=== PATIENT | female | born 1955 | race Caucasian/White ===

== ENCOUNTER 2017-09-23 17:41 | Observation (INO) | payer MEDICARE ==
[2017-09-23] MEDS ORDERED: 0.9 % SODIUM CHLORIDE 1,000 ML BAG IV ONE ×2 (18:00→18:36)
[2017-09-23] MEDS ORDERED: MORPHINE SULFATE 4MG/ML PREFILLED SYRINGE IVP ONE (18:00)
[2017-09-23] MEDS ORDERED: ONDANSETRON HCL IV 4 MG/2 ML VIAL IVP ONE (18:00)
--- NOTE | 2017-09-23 18:10 | Emergency Department Record ---
History of Present Illness <Huy Farmer - Last Filed: 09/23/17 20:29> - General Source: Patient, Family Mode of Arrival: Ambulatory Limitations: No limitations - History of Present Illness Initial Comments: 62 yo female presents after a fall at home in her kitchen. She states she has not felt well the last few days. She has had poor appetite, nausea, diarrhea. The diarrhea is improved today. She has felt weak and tired with decreased appetite. Today she was walking in the kitchen hitting her face, knees, left hand and left elbow. There was questionable very brief LOC. No neck pain, chest pain, abdominal pain, new back pain. She has MEN type IIA syndrome with cancer, adrenal absence,HTN, Medullary carcinoma of the thyroid. PCP Dr Rodger Rodriguez in [place] Complaint: Fall Onset/Timin -: Minutes(s) Fall From: Standing When Fall Occurred: 1 hour [employer] Fall Witnessed: No Place Fall Occurred: Home Symptoms Prior to Fall: None Location: Head, Face Location - Extremities: Left: Elbow, Hand Severity: Moderate Severity scale (1-10): 6 Quality: Aching Associated Symptoms: Denies - [place] Coma Scale Eye Response: (4) Open spontaneously Motor Response: (6) Obeys commands Verbal Response: (5) Oriented Vandana Total: 15 <SASHA LIVINGSTON - Last Filed: 09/24/17 08:19> - General Chief Complaint: Fall Injury Stated Complaint: FELL Time Seen by Provider: 09/23/17 17:59 - Related Data Home Medications Medication Instructions Recorded Confirmed Last Taken Acetaminophen 1,000 mg PO Q6H PRN 09/23/17 09/23/17 Unknown Acyclovir 1 apply TP ASDIR PRN 09/23/17 09/23/17 Unknown Beclomethasone Dipropionate [Qvar 2 inh INH BID 09/23/17 09/23/17 Unknown 80Mcg/100 Actuat Inhaler] Denosumab [Prolia] 60 mg SQ ASDIR 09/23/17 09/23/17 Unknown Dexamethasone [Decadron] 0.5 mg PO ASDIR 09/23/17 09/23/17 Unknown Diphenhydramine HCl [Benadryl] 25 mg PO WEEKLY 09/23/17 09/23/17 Unknown Fluticasone Propionate [Flonase] 1 spray EACH NARES BID 09/23/17 09/23/17 Unknown Hydrochlorothiazide [Hctz] 25 mg PO QHS 09/23/17 09/23/17 Unknown Lidocaine Patch [Lidoderm] 1 each TOP DAILY PRN 09/23/17 09/23/17 Unknown Losartan Potassium [Cozaar] 100 mg PO QHS 09/23/17 09/23/17 Unknown Metoprolol Succinate [Toprol Xl] 50 mg PO DAILY 09/23/17 09/23/17 Unknown Ondansetron [Zofran Odt] 4 mg PO Q8H PRN 09/23/17 09/23/17 Unknown Oxycodone HCl 5 mg PO Q4H PRN 09/23/17 09/23/17 Unknown Promethazine HCl/Codeine 5 - 10 ml PO Q4H PRN 09/23/17 09/23/17 Unknown [Prometh-Codein 6.25-10 mg/5 ml] Vortioxetine Hydrobromide 10 mg PO QAM 09/23/17 09/23/17 Unknown [Brintellix] Allergies Allergy/AdvReac Type Severity Reaction Status Date / Time Cephalosporins Allergy Unknown SWELLING Verified 09/23/17 17:58 (GENERAL) Penicillins Allergy Unknown HIVES Verified 09/23/17 17:58 Sulfa (Sulfonamide Allergy Unknown SWELLING Verified 09/23/17 17:58 Antibiotics) (GENERAL) sulfamethoxazole Allergy Unknown SWELLING Verified 09/23/17 17:58 (GENERAL) adhesive Allergy RASH Verified 09/23/17 17:58 Latex Allergy: Allergy Unknown RASH Uncoded 08/16/14 21:48 Travel Screening - Travel/Exposure Within Last 30 Days Have you traveled within the last 30 days?: No <SASHA LIVINGSTON - Last Filed: 09/24/17 08:19> Review of Systems Constitutional: Reports: Malaise, Weakness. Denies: Chills, Fever Eyes: Denies: Eye discharge, Eye pain, Photophobia, Vision change ENT: Denies: Congestion, Throat pain Respiratory: Denies: Cough, Dyspnea, Hemoptysis, Stridor, Wheezes Cardiovascular: Reports: Syncope. Denies: Chest pain, Edema, Palpitations Endocrine: Reports: Fatigue. Denies: Polydipsia, Polyuria Gastrointestinal: Reports: Diarrhea, Nausea, Vomiting. Denies: Abdominal pain, Constipation, Hematemesis, Hematochezia, Melena Genitourinary: Denies: Dysuria, Urgency Musculoskeletal: Reports: Arthralgia, Back pain (chronic and unchanged). Denies : Myalgia, Neck pain Skin: Reports: Bruising. Denies: Change in color Neurological: Reports: Headache. Denies: Abnormal gait, Confusion, Numbness, Tingling, Tremors, Vertigo, Weakness Psychiatric: Denies: Anxiety Hematological/Lymphatic: Denies: Easy bleeding, Easy bruising, Swollen glands <SASHA LIVINGSTON - Last Filed: 09/24/17 08:19> Past Medical History - SOCIAL HISTORY Smoking Status: Never smoker Alcohol Use: None Drug Use: None - RESPIRATORY Hx Respiratory Disorders: Yes Hx Asthma: Yes - CARDIOVASCULAR Hx Cardio Disorders: Yes Hx Abnormal EKG: Yes Hx Cardiac Cath: Yes Hx Deep Vein Thrombosis: Yes Hx Edema: Yes Hx Heart Attack: Yes Hx Hypertension: Yes Hx Hypotension: Yes Comment:: weak heart/ hole in heart between chambers/mitral valve prolapse - NEURO Hx Neuro Disorders: No - GI Hx GI Disorders: Yes Hx Reflux: Yes Hx Irritable Bowel: Yes - Hx Genitourinary Disorders: Yes Hx UTI: Yes - ENDOCRINE Hx Endocrine Disorders: No - MUSCULOSKELETAL Hx Musculoskeletal Disorders: Yes Hx Arthritis: Yes Hx Back Injury: Yes - PSYCH Hx Psych Problems: Yes Hx Depression: Yes - HEMATOLOGY/ONCOLOGY Hx Hematology/Oncology Disorders: Yes Hx Anemia: Yes (hypogamma globulin anemia) Hx Blood Disorders: Yes 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 negative: Atraumatic, Normal inspection Head exam detail: Abrasion, Contusion Image of Face/Head: 1 - contusion 2 - contusion - Eye Eye exam: Normal appearance, PERRL, EOMI, Periorbital swelling, Periorbital tenderness. negative: Conjunctival injection, Scleral icterus - ENT ENT exam: Normal exam, Mucous membranes moist, Normal orophraynx Ear exam: Normal external inspection Nasal Exam: Normal inspection Mouth exam: Normal external inspection Teeth exam: Normal inspection Throat exam: Normal inspection. negative: Tonsillar erythema, Tonsillar exudate - Neck Neck exam: Normal inspection, Full ROM. negative: Meningismus, Tenderness - Respiratory Respiratory exam: Normal lung sounds bilaterally. negative: Accessory muscle use, Chest wall tenderness, Decreased breath sounds, Prolonged expiratory, Respiratory distress, Stridor, Wheezes - Cardiovascular Cardiovascular Exam: Regular rate, Normal rhythm, Normal heart sounds - GI/Abdominal GI/Abdominal exam: Soft. negative: Distended, Guarding, Rebound, Rigid, Tenderness - Rectal Rectal exam: Deferred - exam: Deferred - Extremities Extremities exam: Full ROM, Joint swelling, Normal capillary refill. negative: Normal inspection, Pedal edema Image of Full Body: 1 - bilateral anterior knee tenderness, Slight abrasion on the left 2 - tenderness to palpation lateral elbow, full ROM 3 - lateral hand abrasion, tenderness, mild swelling 4 - tender, swelling, slight abrasion - Back Back exam: Reports: Normal inspection, Full ROM. Denies: CVA tenderness (R), CVA tenderness (L), Muscle spasm, Paraspinal tenderness, Vertebral tenderness - Neurological Neurological exam: Alert, Normal gait, Oriented X3. negative: Altered - Psychiatric Psychiatric exam: Normal affect, Normal mood - Skin Skin exam: Abrasion <SASHA LIVINGSTON - Last Filed: 09/24/17 08:19> Course Vital Signs 09/23/17 09/23/17 17:47 19:25 Temperature 98.8 F Pulse Rate 61 Pulse Rate [ 52 L Pulse Ox Probe] Respiratory 20 18 Rate Blood Pressure 124/74 Blood Pressure 117/78 [Left Arm] Pulse Ox 93 L 99 - Reevaluation(s) Reevaluation #2: The patient is doing well at this time. She is resting comfortably in no distress. I did discuss the neg xrays with the patient and need for a short stay admission and the patient agreed. I then did discuss the case with Dr. Gonsalves and he does accept the admission. 09/23/17 20:30 <Huy Farmer - Last Filed: 09/23/17 20:29> Vital Signs 09/23/17 17:47 Temperature 98.8 F Pulse Rate 61 Respiratory 20 Rate Blood Pressure 124/74 Pulse Ox 93 L - Reevaluation(s) Reevaluation #1: EKG NSR rate is 60, intervals normal, axis normal, ST NS lateral T wave changes that are old and present on 04/18/15 without new changes. 09/23/17 18:18 09/23/17 18:36 The CMP was reviewed The BUN and CR were 29 and 1.4 up from her baseline. 09/23/17 18:50 The case was signed out to Dr Farmer for further review of the results and disposition <SASHA LIVINGSTON - Last Filed: 09/24/17 08:19> Medical Decision Making - Data Complexity MDM Data: Labs Ordered and/or Reviewed, X-Ray Ordered and/or Reviewed, EKG Ordered and/or Reviewed - Lab Data Result diagrams: 09/23/17 18:00 09/23/17 18:00 Lab Results 09/23/17 09/23/17 09/23/17 Range/Units 18:00 18:00 18:00 WBC 7.6 (4.2-12.2) K/uL RBC 4.47 (3.80-5.40) M/uL Hgb 13.1 (11.6-16.0) gm/dl Hct 38.6 (35.0-47.0) % MCV 86.4 (81-97) fl MCH 29.3 (27-33) pg MCHC 33.9 (32-36) g/dl RDW 13.4 (11.5-14.5) % Plt Count 283 (130-400) K/uL MPV 10.0 (7.4-10.4) fl Gran % 56.0 (47-80) % Lymphocytes % 31.3 (16-45) % Monocytes % 10.0 H (0-9) % Eosinophils % 2.2 (0-6) % Basophils % 0.5 (0-6) % Sodium 139 (136-145) mmol/L Potassium 3.7 (3.4-4.5) mmol/L Chloride 99 (98-107) mmol/L Carbon Dioxide 25.0 (22-29) mmol/L Anion Gap 15.0 (7-16) BUN 29 H (8-23) mg/dL Creatinine 1.4 H (0.5-0.9) mg/dL Estimated GFR 41 mL/min Random Glucose 122 H (74-109) mg/dL Calcium 10.8 H (8.8-10.2) mg/dL Magnesium 1.7 (1.6-2.4) mg/dL Total Bilirubin 0.80 (0.2-1.0) mg/dL AST 14 (10.0-35.0) U/L ALT 12 (<33) U/L Alkaline Phosphatase 58 (35-104) U/L Troponin T (0-0.010) ng/mL Total Protein 7.1 (6.6-8.7) g/dL Albumin 4.4 (4.0-5.0) g/dL Globulin 2.7 (1.4-4.8) gm/dL Albumin/Globulin Ratio 1.6 (1.1-1.8) Urine Color Urine Appearance Urine pH Ur Specific [place] Urine Protein Urine Glucose (UA) Urine Clinitest Urine Ketones Urine Blood Urine Nitrite Urine Bilirubin Urine Ictotest Prot Sulfosalicylic Acd Urine Urobilinogen Ur Leukocyte Esterase 09/23/17 09/23/17 Range/Units 18:02 18:24 WBC (4.2-12.2) K/uL RBC (3.80-5.40) M/uL Hgb (11.6-16.0) gm/dl Hct (35.0-47.0) % MCV (81-97) fl MCH (27-33) pg MCHC (32-36) g/dl RDW (11.5-14.5) % Plt Count (130-400) K/uL MPV (7.4-10.4) fl Gran % (47-80) % Lymphocytes % (16-45) % Monocytes % (0-9) % Eosinophils % (0-6) % Basophils % (0-6) % Sodium (136-145) mmol/L Potassium (3.4-4.5) mmol/L Chloride (98-107) mmol/L Carbon Dioxide (22-29) mmol/L Anion Gap (7-16) BUN (8-23) mg/dL Creatinine (0.5-0.9) mg/dL Estimated GFR mL/min Random Glucose (74-109) mg/dL Calcium (8.8-10.2) mg/dL Magnesium (1.6-2.4) mg/dL Total Bilirubin (0.2-1.0) mg/dL AST (10.0-35.0) U/L ALT (<33) U/L Alkaline Phosphatase (35-104) U/L Troponin T < 0.010 (0-0.010) ng/mL Total Protein (6.6-8.7) g/dL Albumin (4.0-5.0) g/dL Globulin (1.4-4.8) gm/dL Albumin/Globulin Ratio (1.1-1.8) Urine Color Cancelled Urine Appearance Cancelled Urine pH Cancelled Ur Specific [place] Cancelled Urine Protein Cancelled Urine Glucose (UA) Cancelled Urine Clinitest Cancelled Urine Ketones Cancelled Urine Blood Cancelled Urine Nitrite Cancelled Urine Bilirubin Cancelled Urine Ictotest Cancelled Prot Sulfosalicylic Acd Cancelled Urine Urobilinogen Cancelled Ur Leukocyte Esterase Cancelled - EKG Data -: EKG Interpreted by Ar EKG: No Acute Changes - Radiology Data Radiology results: Report reviewed (All xrays with no acute bony fractures or dislocations.) <Huy Farmer - Last Filed: 09/23/17 20:29> - Lab Data Result diagrams: 09/23/17 18:00 09/23/17 18:00 <SASHA LIVINGSTON - Last Filed: 09/24/17 08:19> Disposition Disposition: Admit Decision to Admit: Admit from ER Decision to Admit Date: 09/23/17 Decision to Admit Time: 20:31 Accepting Physician: Brina Time Discussed w/Accepting Physician: 20:31 Time of Disposition: 20:31 <Huy Farmer - Last Filed: 09/23/17 20:29> <SASHA LIVINGSTON - Last Filed: 09/24/17 08:19> Clinical Impression: Syncope Qualifiers: Encounter type: initial encounter Disposition: Still a Patient at [facility] Condition: (2) Stable Quality - Blood Pressure Screening Does Patient Have Any of the Following: No Blood Pressure Classification: Pre-Hypertensive BP Reading Systolic Measurement: 124 Diastolic Measurement: 74 Screening for High Blood Pressure: < Pre-Hypertensive BP, F/U Documented > [ G8950] <Huy Farmer - Last Filed: 09/23/17 20:29> - Quality Measures Quality Measures: N/A - Blood Pressure Screening Blood Pressure Classification: Pre-Hypertensive BP Reading Systolic Measurement: 124 Diastolic Measurement: 74 Screening for High Blood Pressure: < Pre-Hypertensive BP, F/U Documented > [ G8950] Pre-Hypertensive Follow-up Interventions: Referral to alternative/primary care provider. <SASHA LIVINGSTON - Last Filed: 09/24/17 08:19>
[2017-09-23 18:14] LABS: BASO % 0.5 % (0-6); EOS % 2.2 % (0-6); HEMATOCRIT 38.6 % (35.0-47.0); HEMOGLOBIN 13.1 gm/dl (11.6-16.0); LYMPH % 31.3 % (16-45); MEAN CELL VOLUME 86.4 fl (81-97); MEAN CORPUSCULAR HEMOGLOBIN 29.3 pg (27-33); MEAN CORPUSCULAR HGB CONC 33.9 g/dl (32-36); PLATELET COUNT 283 K/uL (130-400); RED BLOOD COUNT 4.47 M/uL (3.80-5.40); RED CELL DISTRIBUTION WIDTH 13.4 % (11.5-14.5); WHITE BLOOD COUNT W/O DIFF 7.6 K/uL (4.2-12.2)
[2017-09-23 18:26] LABS: BILIRUBIN,TOTAL 0.8 mg/dL (0.2-1.0); CREATININE 1.4 mg/dL (0.5-0.9)
[2017-09-23 18:27] LABS: TOTAL PROTEIN 7.1 g/dL (6.6-8.7)
[2017-09-23 18:31] LABS: ALB/GLOB RATIO 1.6 (1.1-1.8); ALBUMIN 4.4 g/dL (4.0-5.0)
[2017-09-23] MEDS ORDERED: LIDOCAINE 5% PATCH TOP SCH (20:53)
[2017-09-23] MEDS ORDERED: DIPHENHYDRAMINE HCL 25 MG CAPSULE PO SCH (20:53)
[2017-09-23] MEDS ORDERED: DEXAMETHASONE 0.5 MG PO SCH (20:53)
[2017-09-23] MEDS ORDERED: ONDANSETRON 4 MG ODT TABLET PO SCH (20:53)
[2017-09-23] MEDS ORDERED: 0.9 % SODIUM CHLORIDE 1000ML 1,000 ML IV PRN (20:53)
[2017-09-23] MEDS ORDERED: ACYCLOVIR TP SCH (20:53)
[2017-09-23] MEDS ORDERED: LEVALBUTEROL TARTRATE INH PRN (20:53)
[2017-09-23] MEDS ORDERED: CODEINE PO SCH (20:53)
[2017-09-23] MEDS ORDERED: PROMETHAZINE HCL PO SCH (20:53)
[2017-09-23] MEDS ORDERED: DENOSUMAB 60 MG/ML SQ SCH (20:53)
[2017-09-23] MEDS ORDERED: OXYCODONE HCL 5 MG TABLET PO PRN (21:41)
[2017-09-23] MEDS ORDERED: ONDANSETRON 4 MG ODT TABLET SL PRN (21:49)
[2017-09-23] MEDS ORDERED: REMOVE PATCH 1 EACH MISC TD SCH (22:00)
[2017-09-23] MEDS ORDERED: ZOLPIDEM TARTRATE 5 MG TABLET PO SCH (22:00)
[2017-09-23] MEDS ORDERED: HYDROCORTISONE 25 MG PO SCH (22:00)
[2017-09-23] MEDS ORDERED: LIDOCAINE 5% TD PRN (22:00)
[2017-09-23] MEDS ORDERED: LOSARTAN PO SCH (22:00)
[2017-09-23] MEDS ORDERED: HYDROCHLOROTHIAZIDE PO SCH (22:00)
[2017-09-23] MEDS ORDERED: LOSARTAN POTASSIUM 100 MG TABLET PO SCH (22:00)
[2017-09-23] MEDS ORDERED: REMOVE PATCH 1 EACH MISC TD PRN (22:00)
[2017-09-23] MEDS ORDERED: HYDROCHLOROTHIAZIDE 25 MG TABLET PO SCH (22:00)
[2017-09-23] MEDS ORDERED: BREO (FLUTICASONE/VILANTEROL) 200MCG/25MCG INHALER INH SCH (22:00)
[2017-09-23] MEDS ORDERED: MONTELUKAST SODIUM 10MG TABLET PO SCH (22:00)
[2017-09-23] MEDS: ACETAMINOPHEN 500 MG TABLET PO PRN (22:30)
[2017-09-23] MEDS: PANTOPRAZOLE SODIUM 40 MG TABLET PO SCH (22:30)
[2017-09-23] MEDS: FLUTICASONE PROPIONATE 50MCG NASAL 16 GM BTL SCH (22:31)
[2017-09-23] MEDS: LEVALBUTEROL HCL 1.25 MG/3 ML INH PRN (22:32)
[2017-09-24 02:04] LABS: CKMB 1.2 ng/mL (<3.77)
[2017-09-24] MEDS: ACETAMINOPHEN 500 MG TABLET PO PRN (04:43)
[2017-09-24] MEDS: PANTOPRAZOLE SODIUM 40 MG TABLET PO SCH (06:04)
[2017-09-24] MEDS: FLUDROCORTISONE ACETATE 0.1 MG PO SCH ×2 (06:06→14:35)
[2017-09-24] MEDS: HYDROCORTISONE 10 MG PO SCH ×2 (06:09→14:35)
[2017-09-24] MEDS ORDERED: HYDROCORTISONE 5 MG PO SCH (07:00)
[2017-09-24] MEDS ORDERED: LEVOTHYROXINE SODIUM 175 MCG TABLET PO SCH (07:00)
[2017-09-24] MEDS: FLUTICASONE PROPIONATE 50MCG NASAL 16 GM BTL SCH (09:13)
[2017-09-24] MEDS ORDERED: (Vortioxetine Hydrobromide [Trintellix] 10 MG) PO SCH (10:00)
[2017-09-24] MEDS ORDERED: METOPROLOL TART 50 MG TABLET PO SCH (10:00)
[2017-09-24] MEDS ORDERED: FLUTICASONE PROPIONATE 50MCG NASAL 16 GM BTL SCH (10:00)
[2017-09-24] MEDS ORDERED: ACIDOPH PARACASEI B LACTIS PO SCH (10:00)
[2017-09-24] MEDS ORDERED: METOPROLOL SUCC 50 MG TABLET PO SCH (10:00)
[2017-09-24 10:53] LABS: BASO % 0.3 % (0-6); EOS % 3.1 % (0-6); GRAN % 58.3 % (47-80); HEMOGLOBIN 11.2 gm/dl (11.6-16.0); LYMPH % 28.4 % (16-45); MEAN CELL VOLUME 89.1 fl (81-97); MEAN PLATELET VOLUME 9.9 fl (7.4-10.4); MONO % 9.9 % (0-9); PLATELET COUNT 234 K/uL (130-400); RED BLOOD COUNT 3.93 M/uL (3.80-5.40); RED CELL DISTRIBUTION WIDTH 13.4 % (11.5-14.5); WHITE BLOOD COUNT W/O DIFF 6.1 K/uL (4.2-12.2)
[2017-09-24 11:00] LABS: CKMB 1.2 ng/mL (<3.77)
[2017-09-24 11:24] LABS: MEAN CORPUSCULAR HEMOGLOBIN 28.4 pg (27-33)
[2017-09-24 11:55] LABS: BLOOD UREA NITROGEN 23 mg/dL (8-23); CREATININE 0.9 mg/dL (0.5-0.9); EST GLOMERULAR FILTRATION RATE > 60 mL/min; GLUCOSE,RANDOM 80 mg/dL (74-109)
[2017-09-24] MEDS: LEVALBUTEROL HCL 1.25 MG/3 ML INH PRN (13:02)
--- NOTE | 2017-09-24 14:13 | Discharge Note ---
VTE H&P Assessment - Risk for VTE Risk for VTE: No Risk Level: Very Low Risk Assessment Date: 09/24/17 Risk Assessment Time: 14:07 VTE Orders Placed or Will Be Placed: No VTE Reason for No Prophylaxis: Not Indicated Discharge Medications - Discharge Medications Home Medications: Ambulatory Orders Fluticasone/Salmeterol [Advair Hfa 230-21 Mcg Inhaler] 2 puff IH BID 06/20/14 [ Last Taken 07/27/15] Levothyroxine Sodium [Synthroid] 175 mcg PO DAILYTHY 06/20/14 [Last Taken ] Montelukast Sodium [Singulair] 10 mg PO QHS 06/20/14 [Last Taken 07/27/15] Omeprazole [Prilosec] 20 mg PO BID 06/20/14 [Last Taken 07/28/15] Zolpidem Tartrate [Ambien] 10 mg PO QHS 06/20/14 [Last Taken 07/26/15] Hizentra 80 ml INJ WEEKLY 08/16/14 [Last Taken 07/27/15] Fludrocortisone Acetate [Florinef] 0.1 mg PO 0700,1430 04/17/15 [Last Taken 01/02] Levalbuterol Tartrate [Xopenex Hfa] 1 - 2 puff INH Q6HR PRN 04/17/15 [Last Taken 07/27/15] Hydrocortisone [Cortef] 10 mg PO 0700,1430 06/22/15 [Last Taken 07/27/15] L.acidoph,Paracasei, B.lactis [Probiotic] 1 each PO BID 09/16/15 [Last Taken Unknown] Acetaminophen 1,000 mg PO Q6H PRN 09/23/17 [Last Taken Unknown] Acyclovir 1 apply TP ASDIR PRN 09/23/17 [Last Taken Unknown] Beclomethasone Dipropionate [Qvar 80Mcg/100 Actuat Inhaler] 2 inh INH BID [Last Taken Unknown] Denosumab [Prolia] 60 mg SQ ASDIR 09/23/17 [Last Taken Unknown] Dexamethasone [Decadron] 0.5 mg PO ASDIR 09/23/17 [Last Taken Unknown] Diphenhydramine HCl [Benadryl] 25 mg PO WEEKLY 09/23/17 [Last Taken Unknown] Fluticasone Propionate [Flonase] 1 spray EACH NARES BID 09/23/17 [Last Taken Unknown] Hydrochlorothiazide [Hctz] 25 mg PO QHS 09/23/17 [Last Taken Unknown] Lidocaine Patch [Lidoderm] 1 each TOP DAILY PRN 09/23/17 [Last Taken Unknown] Losartan Potassium [Cozaar] 100 mg PO QHS 09/23/17 [Last Taken Unknown] Metoprolol Succinate [Toprol Xl] 50 mg PO DAILY 09/23/17 [Last Taken Unknown] Ondansetron [Zofran Odt] 4 mg PO Q8H PRN 09/23/17 [Last Taken Unknown] Oxycodone HCl 5 mg PO Q4H PRN 09/23/17 [Last Taken Unknown] Promethazine HCl/Codeine [Prometh-Codein 6.25-10 mg/5 ml] 5 - 10 ml PO Q4H PRN 09/23/17 [Last Taken Unknown] Vortioxetine Hydrobromide [Trintellix] 10 mg PO QAM 09/23/17 [Last Taken Unknown ] Discharge Note - Date Date of Discharge Note: 09/24/17 Condition: (2) Stable Instructions: Dehydration (DC), Syncope (DC) Additional Instructions: increase hydrocortrisone to 15 mg BID for 2 days than back to 15 mg in am and than 20 mg in the afternoon drink plenty of fluids follow up with Dr. 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
[2017-09-24] MEDS: HYDROCORTISONE 15 MG PO ONE ×2 (14:34→15:00)
--- NOTE | 2017-09-25 09:28 | RADIOLOGY REPORT ---
EXAM: ELBOW, LEFT 3 VIEWS HISTORY: FALL. TECHNIQUE: Four views, left elbow. ENCOUNTER: Initial. COMPARISON: None. FINDINGS: Four views of the left elbow show intact bony structures without evidence of fracture or dislocation. No joint effusion. IMPRESSION: NORMAL LEFT ELBOW. JOB NUMBER: [id number] MTDD
--- NOTE | 2017-09-25 09:30 | RADIOLOGY REPORT ---
EXAM: HAND, LEFT 3 VIEWS HISTORY: FALL. TECHNIQUE: Left hand, three views. COMPARISON: None. ENCOUNTER: Initial. FINDINGS: Three views of the left hand show intact bony structures without evidence of fracture or dislocation. No soft tissue abnormalities. No foreign bodies in the soft tissues. The patient has radial tilt of the hand on the images, likely a positional abnormality. IMPRESSION: NO EVIDENCE OF FRACTURE OF THE LEFT HAND. JOB NUMBER: [id number] MTDD
--- NOTE | 2017-09-25 09:34 | RADIOLOGY REPORT ---
EXAM: KNEE, LEFT 3 VIEWS HISTORY: FALL. TECHNIQUE: Left knee series, four views. COMPARISON: Left knee x-rays, 11/17/2010. ENCOUNTER: Initial. FINDINGS: Four views of the left knee again shows a total knee arthroplasty in anatomic alignment. The hardware is intact. There is no lucency around the prosthesis. Another screw is seen in the medial tibia and in the lateral femur, as on prior exam. No fractures. No joint effusion. IMPRESSION: STABLE FINDINGS OF TOTAL LEFT KNEE ARTHROPLASTY. NO FRACTURES. JOB NUMBER: [id number] [facility]
--- NOTE | 2017-09-25 09:35 | RADIOLOGY REPORT ---
EXAM: KNEE, RIGHT 3 VIEWS HISTORY: FALL. TECHNIQUE: Right knee series, three views. COMPARISON: None. ENCOUNTER: Initial. FINDINGS: Three views of the right knee show a total knee arthroplasty in anatomic alignment. No lucency around the prosthesis. No fractures. There may be a tiny joint effusion. IMPRESSION: TOTAL RIGHT KNEE ARTHROPLASTY. THERE MAY BE A TINY JOINT EFFUSION. JOB NUMBER: [id number] MTDD
--- NOTE | 2017-09-25 09:38 | CT SCAN REPORT ---
EXAM: CT SCAN MAXILLOFACIAL WO CONTRAST HISTORY: FALL. TECHNIQUE: Maxillofacial CT without IV contrast. COMPARISON: Maxillofacial CT, 11/24/2015. FINDINGS: No fractures are identified in the maxillofacial bones. Inferior orbital rims are intact. Zygomatic arches are intact. Temporomandibular joints are symmetric. Orbital contents are symmetric. There is mucosal thickening of the maxillary sinuses. IMPRESSION: NO EVIDENCE OF FRACTURE OF THE MAXILLOFACIAL BONES. JOB NUMBER: [id number] MTDD
--- NOTE | 2017-09-25 14:39 | CT SCAN REPORT ---
EXAM: CT SCAN HEAD WO CONTRAST HISTORY: FELL AND HIT HEAD. TECHNIQUE: Helical CT scan of the head obtained without intravenous contrast. HAND DOMINANCE: Right. COMPARISON: CT head 11/24/2015. FINDINGS: No evidence of hemorrhage, extraaxial fluid collection, or major vessel infarction. Aguilera-white matter differentiation is maintained. Tiny lacunar infarction again seen in the left thalamus. Ventricles are normal. The basal cisterns are patent. Calvarium is intact. Paranasal sinuses show mucosal thickening of the maxillary sinuses. Middle ear cavities are well aerated. No skull fractures. Several tiny lytic foci are seen in the calvarium, most of them are similar to previous exam. There is one in the right occipital skull, which is slightly larger compared to previous exam. IMPRESSION: 1. NO ACUTE INTRACRANIAL ABNORMALITIES. 2. CHRONIC INFLAMMATORY CHANGES IN THE MAXILLARY SINUSES. 3. THERE ARE SOME TINY LYTIC LESIONS IN THE CALVARIUM, QUESTION WHETHER THE PATIENT HAS HISTORY OF MALIGNANCY. JOB NUMBER: [id number] MTDD
--- NOTE | 2017-09-27 13:00 | History and Physical Report ---
DATE: 09/24/2017 at 12:26 p.m. This is an observation patient. She was admitted on 09/23/2017 through the emergency department by Dr. Ramirez and Dr. Farmer. CHIEF COMPLAINT: Syncope. HISTORY OF PRESENT ILLNESS: This 62-year-old female fell down in her kitchen. She states no real warning symptoms; however, she did have nausea, vomiting, diarrhea 24 hours prior to this excessively on the toilet for 2 hours with diarrhea. One episode of vomiting. She has had a decreased appetite. 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 Her initial EKG showing normal sinus rhythm. No acute changes. She has occasional PVC on the monitor. Her repeat EKG this morning showing the same. She had 3 sets of cardiac enzymes and troponin T, which were negative. She tells me she had a previous silent MS and she sees a dye tub tender at [facility]. She also sees doctors at the [facility] for her medullary thyroid cancer, Dr. Marquez at the [facility]. The medullary carcinoma started at 30 years of age and she also had the multiple endocrine neoplasia started at that time too. She has been asymptomatic since she was admitted to the hospital. She is walking to the bathroom without difficulties. PAST MEDICAL HISTORY: She has multiple endocrine neoplasia syndrome type 2, she has adrenal absence syndrome, she has hypertension, medullary carcinoma of the thyroid, she has had a silent MS, she has hypertension and occasionally hypotension with adrenal insufficiency, she has had DVTs in the past, GERD, arthritis, low back pain, using narcotics. She has had some anxiety and depression in the past. She also has hypogammaglobulinemia. She has required blood transfusions in the past. She states that she has a hole in her heart between the chambers, mitral valve prolapse. PAST SURGICAL HISTORY: She had 21 lymph nodes removed in her neck, hysterectomy, thyroidectomy, adrenal glands bilaterally removed, and radical neck dissection. MEDICATIONS: 1. Oxycodone 5 mg q.4 h. p.r.n. 2. Cozaar 100 mg q.h.s. 3. Probiotic 1 b.i.d. 4. Metoprolol succinate 50 mg daily. 5. Xopenex 1-2 puffs inhalation q.6 h. p.r.n. 6. Florinef 0.1 mg b.i.d. 7. Benadryl 25 mg weekly. 8. Tylenol 1000 mg q.6 h. p.r.n. 9. Cortef 15 in the morning and 10 at 2 p.m. daily, so 25 mg a day. 10. Hydrochlorothiazide 25 mg q.h.s. 11. Flonase 1 spray each nostril b.i.d. 12. Lidoderm patch to her back p.r.n. 13. Levothyroxine 175 mcg daily. 14. Phenergan with codeine cough syrup 5-10 mL q.4 h. p.r.n. 15. QVAR 15 mcg 2 puffs b.i.d. 16. Brintellix 10 mg q.a.m. for depression. 17. Prolia 60 mg as directed subcu. I believe that is monthly. 18. Zofran ODT is 4 mg q.8 h. p.r.n. 19. She uses only Decadron if she is in an emergency situation. 20. Acyclovir apply to cold sores or lesions 5 times a day with a breakout p.r.n. 21. Ambien 10 mg q.h.s. 22. Prilosec 20 mg b.i.d. 23. Singulair 10 mg q.h.s. 24. Advair 250/50 two puffs b.i.d. 25. Hizentra 80 mg injection weekly. Occasionally she has a high calcium. ALLERGIES: CEPHALOSPORIN, PENICILLIN, SULFA, ADHESIVE, LATEX. FAMILY/PSYCHOSOCIAL HISTORY: Brother and sister had alcohol. Mother has cancer. Children have cancer. Heart disease for the father. Liver disease for the brother and sister. REVIEW OF SYSTEMS: HEENT: No upper respiratory infection symptoms, cough, cold, or congestion. Cardiovascular: No chest pain, palpitations, or arrhythmia. Respiratory: No cough, cold, or congestion. Gastrointestinal: See Chief Complaint. She had some nausea. No more diarrhea. She did have diarrhea and one episode of vomiting 24 hours prior to coming into the hospital. No blood in her stools. Genitourinary: No dysuria, hematuria, frequency, or burning on urination. Musculoskeletal: No joint or bone abnormalities. She does have some chronic low back pain. Neurological: No CVA, paralysis, or paresthesias. [employer]: No abnormal lumps in her breasts or abnormal vaginal bleeding. Endocrine: She has multiple endocrine neoplasia syndrome type 2 with medullary carcinoma of the thyroid. Integument: No rash, ulcers, change in moles, or yellow skin. PHYSICAL EXAMINATION: VITALS: Height 5 feet 8 inches, weight 262 pounds. Temperature 96.8, pulse 78, blood pressure 109/61, respiratory rate 16, pulse ox 97% on room air. HEENT: Pupils are equal, round, and reactive to light and accommodation. Extraocular muscles are intact. Throat is clear, no signs of infection. Nose is clear. NECK: Supple. No jugular venous distention. No hepatojugular reflux. No carotid bruits. Thyroid is smooth. CARDIOVASCULAR: Regular rate and rhythm without murmurs, clicks, rubs, or gallops. RESPIRATORY: Clear to auscultation and percussion. ABDOMEN: Soft, nontender. No hepatosplenomegaly, no masses, no tenderness. Bowel sounds are active. No bruits. EXTREMITIES: No pitting edema. No cyanosis, no clubbing. Full range of motion. Peripheral pulses are good. BREASTS: Exam deferred. GYNECOLOGICAL: Exam deferred. RECTAL: Exam deferred. NEUROLOGIC: Cranial nerves II-XII intact. No gross defects. Sensation normal, strength normal. Deep tendon reflexes equal bilaterally with Babinski negative. MENTAL STATUS: Alert and oriented x3. IMPRESSION: 1. Syncope. 2. Vasovagal syndrome. 3. Multiple endocrine neoplasia type 2A syndrome. 4. Medullary thyroid carcinoma. 5. Dehydration. 6. Diarrhea 24 hours prior to admission. PLAN: Increase the fluids. Increase hydrocortisone to 50 mg twice a day for 3 days. Discharge with Holter monitor. Follow up with Dr. Zimmer on Wednesday as scheduled. If problems, return to the emergency department either at [facility] or of depending on how things are going. [facility]
--- NOTE | 2017-09-29 21:04 | Holter Monitor Report ---
DATE OF TEST: 09/24/2017 INTERPRETING PHYSICIAN: Denver Lagunas M.D. PRIMARY CARE PHYSICIAN: Dr. Rodger Coronado REFERRING PHYSICIAN: Dr. Laureano Gonsalves. INDICATION: Syncope. Ms. Varner underwent a 24-hour Holter monitoring starting at 2:49 p.m. on 09/24. 519 ventricular ectopics, which represented 1% of the total beat count were noted. All of these ventricular ectopics were isolated beats. No couplets or runs were identified. 20 supraventricular ectopics were seen. No significant ST or T-wave changes were noticed. The patient reported symptom of heart pounding, however sinus rhythm with no significant arrhythmia was identified. IMPRESSION: 1. THIS 24-HOUR HOLTER MONITORING REVEALED THE PATIENT TO HAVE SINUS RHYTHM WITH FREQUENT VENTRICULAR ECTOPIC ACTIVITY AND OCCASIONAL SUPRAVENTRICULAR ECTOPIC ACTIVITY. 2. THE PATIENT'S SYMPTOMS COULD NOT BE CORRELATED WITH ANY SIGNIFICANT ARRHYTHMIA. JOB NUMBER: [id number] MTDD
[2017-09-30] MEDS ORDERED: IMMUNE GLOBULIN INJ SCH (10:00)
== END 2017-09-24 15:17 | disposition home or self-care (01) ==
LOC: ER 17:41 → MEDSURG 21:14
PROVIDERS: ADMIT Internal Medicine; ATTEND Internal Medicine
DX: R55 Syncope and collapse (principal); C79.9 Secondary malignant neoplasm of unspecified site; E86.0 Dehydration; E31.22 Multiple endocrine neoplasia [MEN] type IIA; S00.12XA Contusion of left eyelid and periocular area, initial encounter; S60.222A Contusion of left hand, initial encounter; S80.02XA Contusion of left knee, initial encounter; I10 Essential (primary) hypertension; I95.9 Hypotension, unspecified; J45.909 Unspecified asthma, uncomplicated; I25.2 Old myocardial infarction; K21.9 Gastro-esophageal reflux disease without esophagitis; M19.90 Unspecified osteoarthritis, unspecified site; D64.89 Other specified anemias
CPT/HCPCS: 83735; 85025 ×2; 82553; 80048; 80053; 84484 ×2; 73080; 73130; 73562 ×2; 70450; 70486; 94640 ×3; 93005 ×2; 93225; 93226; 93010; G0378 ×2; J2405; J3490 ×2; J2274; 96365; 96366; 96374; 96375; 99236; 99285; J7030

== ENCOUNTER 2018-09-29 04:23 | Emergency (ER) | payer MEDICARE ==
[2018-09-29] MEDS ORDERED: HYDROMORPHONE HCL 2 MG/ML VIAL IVP ONE ×2 (05:03→07:06)
[2018-09-29] MEDS ORDERED: ONDANSETRON HCL IV 4 MG/2 ML VIAL IVP ONE (05:03)
[2018-09-29 05:22] LABS: ABSOLUTE NEUTROPHIL COUNT 4.64; BASO % 0.4 % (0-6); EOS % 1.8 % (0-6); GRAN % 65.8 % (47-80); HEMATOCRIT 35.4 % (35.0-47.0); HEMOGLOBIN 11.6 gm/dl (11.6-16.0); LYMPH % 27.6 % (16-45); MEAN CELL VOLUME 91.2 fl (81-97); MEAN CORPUSCULAR HEMOGLOBIN 29.9 pg (27-33); MEAN CORPUSCULAR HGB CONC 32.8 g/dl (32-36); MONO % 4.4 % (0-9); PLATELET COUNT 245 K/uL (130-400); RED BLOOD COUNT 3.88 M/uL (3.80-5.40); RED CELL DISTRIBUTION WIDTH 13.5 % (11.5-14.5); WHITE BLOOD COUNT W/O DIFF 7.1 K/uL (4.2-12.2)
[2018-09-29 05:28] LABS: BLOOD UREA NITROGEN 16 mg/dL (8-23); CREATININE 0.8 mg/dL (0.5-0.9); EST GLOMERULAR FILTRATION RATE > 60 mL/min
[2018-09-29 05:30] LABS: GLUCOSE,RANDOM 125 mg/dL (74-109)
--- NOTE | 2018-09-29 06:05 | Emergency Department Record ---
History of Present Illness - General Chief Complaint: Neck Injury/Pain Stated Complaint: NECK PAIN Time Seen by Provider: 09/29/18 04:55 Source: Patient Mode of Arrival: Ambulatory Limitations: No limitations - History of Present Illness Initial Comments: pt has a hx of thyroid medullary cancer w mets to the bone. pt is seen at [place] and is receiving radiation. this am the pain is unbearable. she has no weakness or numbness MD Complaint: Neck pain Onset/Timin -: Days(s) Place: Home Severity scale (1-10): 10 Quality: Other Consistency: Constant Improves With: None, Remaining still Worsens With: Movement of neck Context: Other Associated Symptoms: Headache Treatments Prior to Arrival: Prescription pain med - Related Data Home Medications Medication Instructions Recorded Confirmed Last Taken Bupropion HCl 75 mg PO TID 09/29/18 09/29/18 09/28/18 Cinacalcet HCl 30 mg PO BID 09/29/18 09/29/18 09/28/18 Valacyclovir HCl [Valacyclovir] 500 mg PO BID 09/29/18 09/29/18 09/28/18 Allergies Allergy/AdvReac Type Severity Reaction Status Date / Time Cephalosporins Allergy Unknown SWELLING Verified 09/23/17 17:58 (GENERAL) Penicillins Allergy Unknown HIVES Verified 09/23/17 17:58 Sulfa (Sulfonamide Allergy Unknown SWELLING Verified 09/23/17 17:58 Antibiotics) (GENERAL) sulfamethoxazole Allergy Unknown SWELLING Verified 09/23/17 17:58 (GENERAL) adhesive Allergy RASH Verified 09/23/17 17:58 Latex Allergy: Allergy Unknown RASH Uncoded 08/16/14 21:48 Travel Screening - Travel/Exposure Within Last 30 Days Have you traveled within the last 30 days?: No - Travel/Exposure Within Last Year Have you traveled outside the [place] in the last year?: No - Additonal Travel Details Have you been exposed to anyone with a communicable illness?: No - Travel Symptoms Symptom Screening: None Review of Systems Reviewed: No additional complaints except as noted below Constitutional: Reports: As per HPI. Denies: Chills, Fever, Malaise, Night sweats, Weakness, Weight change Eyes: Reports: As per HPI. Denies: Eye discharge, Eye pain, Photophobia, Vision change ENT: Reports: As per HPI. Denies: Congestion, Dental pain, Ear pain, Epistaxis, Hearing loss, Throat pain Respiratory: Reports: As per HPI. Denies: Cough, Dyspnea, Hemoptysis, Stridor, Wheezes Cardiovascular: Reports: As per HPI. Denies: Arrhythmia, Chest pain, Dyspnea on exertion, Edema, Murmurs, Orthopnea, Palpitations, Paroxysmal nocturnal dyspnea, Rheumatic Fever, Syncope Endocrine: Reports: As per HPI. Denies: Fatigue, Heat or cold intolerance, Polydipsia, Polyuria Gastrointestinal: Reports: As per HPI. Denies: Abdominal pain, Constipation, Diarrhea, Hematemesis, Hematochezia, Melena, Nausea, Vomiting Genitourinary: Reports: As per HPI. Denies: Abnormal menses, Discharge, Dyspareunia, Dysuria, Frequency, Hematuria, Incontinence, Retention, Urgency Musculoskeletal: Reports: As per HPI, Myalgia, Neck pain. Denies: Arthralgia, Back pain, Gout, Joint swelling Skin: Reports: As per HPI. Denies: Bruising, Change in color, Change in hair/nails, Lesions, Pruritus, Rash Neurological: Reports: As per HPI. Denies: Abnormal gait, Confusion, Headache, Numbness, Paresthesias, Seizure, Tingling, Tremors, Vertigo, Weakness Psychiatric: Reports: As per HPI. Denies: Anxiety, Auditory hallucinations, Depression, Homicidal thoughts, Suicidal thoughts, Visual hallucinations Hematological/Lymphatic: Reports: As per HPI. Denies: Anemia, Blood Clots, Easy bleeding, Easy bruising, Swollen glands Past Medical History - SOCIAL HISTORY Smoking Status: Never smoker Alcohol Use: Rare Drug Use: None - RESPIRATORY Hx Respiratory Disorders: Yes Hx Asthma: Yes Hx Bronchitis: Yes Hx Pneumonia: Yes - CARDIOVASCULAR Hx Cardio Disorders: Yes Hx Abnormal EKG: Yes Hx Cardiac Cath: Yes Hx Deep Vein Thrombosis: Yes Hx Edema: Yes Hx Heart Attack: Yes Hx Hypertension: Yes Hx Hypotension: Yes Comment:: weak heart/ hole in heart between chambers/mitral valve prolapse - NEURO Hx Neuro Disorders: Yes Hx CVA: Yes (2009) Hx Seizures: No - GI Hx GI Disorders: Yes Hx Reflux: Yes Hx Irritable Bowel: Yes - Hx Genitourinary Disorders: Yes Hx Kidney Stones: Yes Hx UTI: Yes - ENDOCRINE Hx Endocrine Disorders: No Hx Diabetes: No - MUSCULOSKELETAL Hx Musculoskeletal Disorders: Yes Hx Arthritis: Yes Hx Back Injury: Yes - PSYCH Hx Psych Problems: Yes Hx Anxiety: Yes Hx Depression: Yes - HEMATOLOGY/ONCOLOGY Hx Hematology/Oncology Disorders: Yes Hx Anemia: Yes (hypogamma globulin anemia) Hx Blood Disorders: Yes Hx Cancer: Yes (multiple endocrine neoplasia type 2a) Hx Chemotherapy: No (medullary thyroid) Hx Radiation Therapy: Yes Hx Blood Transfusions: Yes Hx Blood Transfusion Reaction: No Family Medical History Any Significant Family History?: Yes Hx Alcohol Use: Brother/Sister Hx Cancer: Mother, Children Hx Heart Disease: Father Hx Liver Disease: Brother/Sister Physical Exam - General General Appearance: Alert, Oriented x3, Cooperative, Moderate distress - Head Head exam: Normal inspection - Eye Eye exam: Normal appearance, PERRL, EOMI Pupils: Normal accommodation - ENT ENT exam: Normal exam, Mucous membranes moist, Normal external ear exam, Normal orophraynx, TM's normal bilaterally Ear exam: Normal external inspection. negative: External canal tenderness Nasal Exam: Normal inspection. negative: Discharge, Sinus tenderness Mouth exam: Normal external inspection, Tongue normal Teeth exam: Normal inspection. negative: Dental caries Throat exam: Normal inspection. negative: Tonsillar erythema, Tonsillar exudate - Neck Neck exam: Normal inspection, Full ROM, Tenderness - Respiratory Respiratory exam: Normal lung sounds bilaterally. negative: Respiratory distres s - Cardiovascular Cardiovascular Exam: Regular rate, Normal rhythm, Normal heart sounds - GI/Abdominal GI/Abdominal exam: Soft, Normal bowel sounds. negative: Tenderness - Rectal Rectal exam: Deferred - exam: Deferred - Extremities Extremities exam: Normal inspection, Full ROM, Normal capillary refill. negative: Tenderness - Back Back exam: Reports: Normal inspection, Full ROM. Denies: Muscle spasm, Rash noted, Tenderness - Neurological Neurological exam: Alert, CN II-XII intact, Normal gait, Oriented X3 - Psychiatric Psychiatric exam: Normal affect, Normal mood - Skin Skin exam: Dry, Intact, Normal color, Warm Course Vital Signs 09/29/18 09/29/18 04:29 05:26 Temperature 97.6 F Pulse Rate [ 70 68 Pulse Ox Probe] Respiratory 20 Rate Blood Pressure 156/85 111/72 [Left Arm] Pulse Ox 96 95 - Reevaluation(s) Reevaluation #1: 09/29/18 06:57 pt is feeling somewhat better but still in a lot of pain Medical Decision Making - Lab Data Result diagrams: 09/29/18 05:10 09/29/18 05:10 Lab Results 09/29/18 09/29/18 Range/Units 05:10 05:10 WBC 7.1 (4.2-12.2) K/uL RBC 3.88 (3.80-5.40) M/uL Hgb 11.6 (11.6-16.0) gm/dl Hct 35.4 (35.0-47.0) % MCV 91.2 (81-97) fl MCH 29.9 (27-33) pg MCHC 32.8 (32-36) g/dl RDW 13.5 (11.5-14.5) % Plt Count 245 (130-400) K/uL MPV 9.0 (7.4-10.4) fl Gran % 65.8 (47-80) % Lymphocytes % 27.6 (16-45) % Monocytes % 4.4 (0-9) % Eosinophils % 1.8 (0-6) % Basophils % 0.4 (0-6) % Absolute Neutrophils 4.64 Sodium 139 (136-145) mmol/L Potassium 3.4 (3.4-4.5) mmol/L Chloride 99 (98-107) mmol/L Carbon Dioxide 28.0 (22-29) mmol/L Anion Gap 12.0 (7-16) BUN 16 (8-23) mg/dL Creatinine 0.8 (0.5-0.9) mg/dL Estimated GFR > 60 mL/min Random Glucose 125 H (74-109) mg/dL Calcium 8.5 L (8.8-10.2) mg/dL Disposition Disposition: Discharge Clinical Impression: Cervical pain (neck) Metastasis Qualifiers: Area of secondary neoplastic involvement: bone Qualified Code(s): C79.51 - Secondary malignant neoplasm of bone Disposition: Home, Self-Care Condition: (2) Stable Instructions: Cervical Radiculopathy (ED) Additional Instructions: follow up with family doctor and oncologist. return sooner if worse Forms: Patient Portal Access Quality - Quality Measures Quality Measures: N/A - Blood Pressure Screening Does Patient Have Any of the Following: No Blood Pressure Classification: Normal BP Reading Systolic Measurement: 111 Diastolic Measurement: 72 Screening for High Blood Pressure: < Normal BP, F/U Not Required > [G8783]
[2018-09-29] MEDS ORDERED: KETOROLAC 30 MG/ML VIAL IVP ONE (06:09)
--- NOTE | 2018-09-30 10:23 | CT SCAN REPORT ---
EXAM: CT SCAN OF THE CERVICAL SPINE WITHOUT CONTRAST HISTORY: INCREASING NECK PAIN. NO KNOWN INJURY. HISTORY OF MEN2A WITH METASTATIC DISEASE TO THE BONE. PREVIOUS RADIATION TO THE C5 LEVEL. TECHNIQUE: Standard CT imaging of the cervical spine was performed in the axial plane without contrast. Additional coronal and sagittal reformatted images were also performed. Comparison: Previous CT scan of the facial bones dated 11/24/15. FINDINGS: There is normal cervical alignment. The craniocervical and cervicothoracic junctions are normal. A 1.4 x 1.5 x 1 cm lytic lesion is present within the C5 vertebral body on the left. The appearance is consistent with osseous metastatic disease. The remaining osseous structures have a somewhat modeled and osteopenic appearance. This may be on the basis of osteopenia or additional developing areas of metastatic disease. These could be further assessed with MRI. There is minor chronic compression of the superior end plate of T2. There is no acute fracture, subluxation, or prevertebral soft tissue swelling. Mild diffuse disk bulging and posterior spurring are noted at the C4-C5 and C5-C6 levels. There is no gross central canal stenosis. Mild bilateral neural foraminal narrowing is present at the C5-C6 level. The neck soft tissues and lung apices appear normal. IMPRESSION: 1. 1.5 X 1 X 1.4 CM LYTIC LESION WITHIN THE C5 VERTEBRAL BODY. NONSPECIFIC MOTTLED APPEARANCE OF THE REMAINING CERVICAL OSSEOUS STRUCTURES. DIFFERENTIAL CONSIDERATIONS INCLUDE METASTATIC DISEASE VERSUS OSTEOPENIA. THIS COULD BE FURTHER ASSESSED WITH MRI IF INDICATED. 2. NO ACUTE CERVICAL SPINE PATHOLOGY. 3. DEGENERATIVE CHANGES ABOVE. JOB NUMBER: [id number] [facility]
== END 2018-09-29 07:30 | disposition home or self-care (01) ==
LOC: ER 04:23
DX: G89.3 Neoplasm related pain (acute) (chronic) (principal); C79.51 Secondary malignant neoplasm of bone; M54.2 Cervicalgia; I10 Essential (primary) hypertension; I25.2 Old myocardial infarction; Z85.850 Personal history of malignant neoplasm of thyroid
CPT/HCPCS: 99284 ×2; 96376; 96374; 96375; 85025; 80048; 72125; J1885; J2405; J1170

== ENCOUNTER 2018-10-04 02:13 | Emergency (ER) | payer MEDICARE ==
[2018-10-04] MEDS ORDERED: HYOSCYAMINE SULFATE ODT 0.125 MG TAB.SUBL SL ONE (02:23)
--- NOTE | 2018-10-04 02:29 | Emergency Department Record ---
History of Present Illness - General Chief complaint: Nausea, Vomiting, Diarrhea Stated complaint: DIARRHEA Time Seen by Provider: 10/04/18 02:22 Source: Patient Mode of Arrival: Ambulatory Limitations: No limitations - History of Present Illness Initial comments: 63 yo female presents to ED for evaluation of loose stools and worsening abdominal cramping for the past 5 days. Patient reports watery stools, denies fevers/chills, or vomiting symptoms. Patient is currently undergoing radiation (last treatment 6 weeks ago) to the neck for metastatic disease resulting from adrenal cancer, reports taking steroid prior to arrival this evening. MD complaint: Abdominal pain, Diarrhea Onset/Timin -: Days(s) Description of Vomiting: Watery Associated Abdominal Pain: No Radiation: None Quality: Aching Consistency: Constant Improves with: None Worsens with: None Associated Symptoms: Nausea/vomiting, Weakness - Related Data Previous Rx's Medication Instructions Recorded Ciprofloxacin HCl [Cipro] 500 mg PO Q12HR #19 tablet 10/04/18 Hyoscyamine Sulfate [Levsin-Sl] 0.25 mg SL Q8H PRN #15 tab.subl 10/04/18 Metronidazole [Flagyl] 500 mg PO Q8H #30 tablet 10/04/18 Allergies Allergy/AdvReac Type Severity Reaction Status Date / Time Cephalosporins Allergy Unknown SWELLING Verified 09/23/17 17:58 (GENERAL) Penicillins Allergy Unknown HIVES Verified 09/23/17 17:58 Sulfa (Sulfonamide Allergy Unknown SWELLING Verified 09/23/17 17:58 Antibiotics) (GENERAL) sulfamethoxazole Allergy Unknown SWELLING Verified 09/23/17 17:58 (GENERAL) adhesive Allergy RASH Verified 09/23/17 17:58 Latex Allergy: Allergy Unknown RASH Uncoded 08/16/14 21:48 Travel Screening - Travel/Exposure Within Last 30 Days Have you traveled within the last 30 days?: No Review of Systems Constitutional: Denies: Chills, Fever, Malaise, Night sweats Eyes: Denies: Eye discharge, Eye pain ENT: Denies: Congestion, Ear pain, Epistaxis Respiratory: Denies: Cough, Dyspnea Cardiovascular: Denies: Chest pain, Dyspnea on exertion Endocrine: Denies: Fatigue, Heat or cold intolerance Gastrointestinal: Reports: Abdominal pain, Diarrhea. Denies: Nausea, Vomiting Genitourinary: Denies: Incontinence, Retention Musculoskeletal: Reports: Neck pain. Denies: Arthralgia, Back pain Skin: Denies: Bruising, Change in color Neurological: Denies: Abnormal gait, Confusion, Seizure Psychiatric: Denies: Anxiety Hematological/Lymphatic: Denies: Anemia, Blood Clots Past Medical History - SOCIAL HISTORY Smoking Status: Never smoker Alcohol Use: None Drug Use: None - RESPIRATORY Hx Respiratory Disorders: Yes Hx Asthma: Yes Hx Bronchitis: Yes Hx Pneumonia: Yes - CARDIOVASCULAR Hx Cardio Disorders: Yes Hx Abnormal EKG: Yes Hx Cardiac Cath: Yes Hx Deep Vein Thrombosis: Yes Hx Edema: Yes Hx Heart Attack: Yes Hx Hypertension: Yes Hx Hypotension: Yes Comment:: weak heart/ hole in heart between chambers/mitral valve prolapse - NEURO Hx Neuro Disorders: Yes Hx CVA: Yes (2009) Hx Seizures: No - GI Hx GI Disorders: Yes Hx Reflux: Yes Hx Irritable Bowel: Yes - Hx Genitourinary Disorders: Yes Hx Kidney Stones: Yes Hx UTI: Yes - ENDOCRINE Hx Endocrine Disorders: No Hx Diabetes: No - MUSCULOSKELETAL Hx Musculoskeletal Disorders: Yes Hx Arthritis: Yes Hx Back Injury: Yes - PSYCH Hx Psych Problems: Yes Hx Anxiety: Yes Hx Depression: Yes - HEMATOLOGY/ONCOLOGY Hx Hematology/Oncology Disorders: Yes Hx Anemia: Yes (hypogamma globulin anemia) Hx Blood Disorders: Yes Hx Cancer: Yes (multiple endocrine neoplasia type 2a) Hx Chemotherapy: No (medullary thyroid) Hx Radiation Therapy: Yes Hx Blood Transfusions: Yes Hx Blood Transfusion Reaction: No Family Medical History Any Significant Family History?: Yes Hx Alcohol Use: Brother/Sister Hx Cancer: Mother, Children Hx Heart Disease: Father Hx Liver Disease: Brother/Sister Physical Exam - General General Appearance: Alert, Oriented x3, Cooperative, Mild distress Limitations: No limitations - Head Head exam: Atraumatic, Normocephalic, Normal inspection Head exam detail: negative: Abrasion, Contusion, Salguero's sign, General tenderness, Hematoma, Laceration - Eye Eye exam: Normal appearance. negative: Conjunctival injection, Periorbital swelling, Periorbital tenderness, Scleral icterus - ENT Ear exam: negative: Auricular hematoma, Auricular trauma Nasal Exam: negative: Active bleeding, Discharge, Dried blood, Foreign body Mouth exam: negative: Drooling, Laceration, Muffled voice, Tongue elevation - Neck Neck exam: Normal inspection. negative: Meningismus, Tenderness - Respiratory Respiratory exam: Normal lung sounds bilaterally. negative: Rales, Respiratory distress, Rhonchi, Stridor - Cardiovascular Cardiovascular Exam: Regular rate, Normal rhythm, Normal heart sounds - GI/Abdominal GI/Abdominal exam: Soft, Tenderness (Mild TTP RLQ, no rebound/guarding symptoms are present, no peritoneal signs are present.). negative: Rebound, Rigid - Rectal Rectal exam: Deferred - exam: Deferred - Extremities Extremities exam: Normal inspection. negative: Pedal edema, Tenderness - Back Back exam: Denies: CVA tenderness (R), CVA tenderness (L) - Neurological Neurological exam: Alert, Normal gait, Oriented X3 - Psychiatric Psychiatric exam: Normal affect, Normal mood - Skin Skin exam: Normal color. negative: Abrasion Type of lesion: negative: abrasion Course - Reevaluation(s) Reevaluation #1: 10/04/18 04:19 Laboratory studies were reviewed and are grossly unremarkable for an acute process. CT results pending. Patient reports that her abdominal cramping symptoms are improved at this time. Reevaluation #2: 10/04/18 05:06 Stool WBCs: Negative C. Diff toxin: Negative CT continues to be pending. Reevaluation #3: 10/04/18 05:23 CT Abdomen and Pelvis: Colonic wall thickening vs. underdistention Patient was updated on all results Given the patient's clinical symptoms and examination, will treat for possible colitis with Cipro and Flagyl as directed. Patient appears stable for discharge. Medical Decision Making - Lab Data Result diagrams: 10/04/18 02:25 10/04/18 02:25 Disposition Disposition: Discharge Clinical Impression: Diarrhea Qualifiers: Diarrhea type: unspecified type Qualified Code(s): R19.7 - Diarrhea, unspecified Disposition: Home, Self-Care Condition: (2) Stable Instructions: Acute Diarrhea (ED) Additional Instructions: Return to ED if your symptoms worsen or if you have any concerns. Levsin as directed. Follow-up with [facility] tomorrow as scheduled. Prescriptions: Ciprofloxacin HCl [Cipro] 500 mg PO Q12HR #19 tablet Metronidazole [Flagyl] 500 mg PO Q8H #30 tablet Hyoscyamine Sulfate [Levsin-Sl] 0.25 mg SL Q8H PRN #15 tab.subl PRN Reason: Abdominal Pain Forms: Patient Portal Access Time of Disposition: 05:27 Quality - Quality Measures Quality Measures: N/A - Blood Pressure Screening Does Patient Have Any of the Following: Active Dx of HTN Blood Pressure Classification: Hypertensive Reading Systolic Measurement: 161 Diastolic Measurement: 95 Screening for High Blood Pressure: Patient Exclusion, Hx of HTN [G9744]
[2018-10-04] MEDS ORDERED: 0.9 % SODIUM CHLORIDE 1000ML 1,000 ML IV SCH (02:30)
[2018-10-04 02:37] LABS: BASO % 0.1 % (0-6); EOS % 0.2 % (0-6); HEMATOCRIT 38.4 % (35.0-47.0); LYMPH % 6.1 % (16-45); MEAN CELL VOLUME 88.9 fl (81-97); MEAN CORPUSCULAR HEMOGLOBIN 30.1 pg (27-33); MEAN CORPUSCULAR HGB CONC 33.9 g/dl (32-36); MEAN PLATELET VOLUME 8.9 fl (7.4-10.4); MONO % 2.1 % (0-9); PLATELET COUNT 292 K/uL (130-400); RED BLOOD COUNT 4.32 M/uL (3.80-5.40); RED CELL DISTRIBUTION WIDTH 13.9 % (11.5-14.5); WHITE BLOOD COUNT W/O DIFF 9.6 K/uL (4.2-12.2)
[2018-10-04 02:56] LABS: BLOOD UREA NITROGEN 13 mg/dL (8-23); CREATININE 0.8 mg/dL (0.5-0.9); EST GLOMERULAR FILTRATION RATE > 60 mL/min; TOTAL PROTEIN 7.6 g/dL (6.6-8.7)
[2018-10-04 02:57] LABS: LIPASE 12 U/L (13-60)
[2018-10-04 02:58] LABS: GLUCOSE,RANDOM 136 mg/dL (74-109)
[2018-10-04 02:59] LABS: ABSOLUTE NEUTROPHIL COUNT 8.59; ANISOCYTOSIS 1+; PLATELET ESTIMATE NORMAL (NORMAL)
[2018-10-04 03:01] LABS: ALB/GLOB RATIO 1.5 (1.1-1.8); ALBUMIN 4.6 g/dL (4.0-5.0); ALKALINE PHOSPHATASE 81 U/L (35-104); ALT/SGPT 15 U/L (<33); AST/SGOT 19 U/L (10.0-35.0)
[2018-10-04 03:30] LABS: URINE APPEARANCE CLEAR; URINE BILIRUBIN NEGATIVE (NEGATIVE); URINE BLOOD SMALL (NEGATIVE); URINE COLOR YELLOW; URINE GLUCOSE (UA) NEGATIVE (NEGATIVE); URINE KETONE TRACE (NEGATIVE); URINE LEUKOCYTE ESTERASE TRACE (NEGATIVE); URINE NITRITE NEGATIVE (NEGATIVE); URINE PROTEIN NEGATIVE (NEGATIVE); URINE UROBILINOGEN 0.2 E.U./dL (0.20 - 1.00)
[2018-10-04 03:38] LABS: URINE BACTERIA FEW; URINE EPITHELIAL CELLS 0 - 2 (FEW); URINE MUCUS LIGHT; URINE RBC 0 - 2 (NONE SEEN); URINE WBC 0 - 2 (0-2/hpf)
[2018-10-04 04:31] LABS: STOOL FOR POLYS NO WBC'S OBSERVED (NO WBC'S)
[2018-10-04] MEDS ORDERED: METRONIDAZOLE 250 MG TABLET PO ONE (05:24)
[2018-10-04] MEDS ORDERED: CIPROFLOXACIN HCL 500 MG TABLET PO ONE (05:24)
[2018-10-04] MEDS ORDERED: POTASSIUM BICARB./CIT AC 25 MEQ EFF.TAB PO STA (05:43)
--- NOTE | 2018-10-06 06:06 | CT SCAN REPORT ---
DATE: 10/04/2018. EXAM: CT OF THE ABDOMEN AND PELVIS WITH CONTRAST. HISTORY: DIARRHEA. TECHNIQUE: Sequential axial images were obtained from the diaphragms through the ischiorectal fossa after intravenous and oral administration of 100 mL of Omnipaque 300 contrast material. FINDINGS: The visualized lung bases appear normal. The liver appears homogeneous. The gallbladder has been surgically removed. No ductal dilation. There is splenomegaly. The spleen measures 15.6 cm. The pancreas appears normal. The left adrenal gland appears normal. The kidneys appear normal. The right adrenal gland is not well visualized. The small bowel appears normal. The colon appears normal. The urinary bladder appears normal. Postoperative surgical change of the left hip joint limits evaluation in the pelvis. IMPRESSION: 1. SPLENOMEGALY. THE SPLEEN MEASURES 15.6 CM AP DIMENSION. 2. THE REMAINDER OF THE EXAMINATION IS NORMAL. Job Number: [id number] MTDD
== END 2018-10-04 05:47 | disposition home or self-care (01) ==
LOC: ER 02:13
DX: R19.7 Diarrhea, unspecified (principal); R11.2 Nausea with vomiting, unspecified; R10.31 Right lower quadrant pain; C74.90 Malignant neoplasm of unspecified part of unspecified adrenal gland; C79.89 Secondary malignant neoplasm of other specified sites; I10 Essential (primary) hypertension; I25.2 Old myocardial infarction
CPT/HCPCS: 99284 ×2; 83690; 80053; 81001; 89055; 87427; 87493; 85027; 74177; Q9967; J1980; J7030